=== PATIENT | male | born 1995 | race Caucasian/White ===

== ENCOUNTER 2020-12-30 08:50 | Emergency (ER) | payer OTHER ==
[~2020-12-30 08:50] MED LIST: ZOFRAN ODT 4 MG4 MG SL
[2020-12-30] MEDS ORDERED: NAPROXEN500 MG PO (10:36)
== END 2020-12-30 11:02 | disposition home or self-care (01) ==
LOC: ER1 08:50
DX: S63.501A Unspecified sprain of right wrist, initial encounter (principal); F17.210 Nicotine dependence, cigarettes, uncomplicated; W19.XXXA Unspecified fall, initial encounter; Y92.009 Unspecified place in unspecified non-institutional (private) residence as the place of occurrence of the external cause
CPT/HCPCS: 29125; 73090; 73130; 99283

== ENCOUNTER → 2021-01-03 | Outpatient (CLI) | payer OTHER ==
[~2021-01-03] MED LIST changes: +NAPROXEN500 MG PO
== END ==
LOC: KOH-I 12:21
DX: S62.101A Fracture of unspecified carpal bone, right wrist, initial encounter for closed fracture (principal); S63.014A Dislocation of distal radioulnar joint of right wrist, initial encounter; W19.XXXA Unspecified fall, initial encounter; S63.591A Other specified sprain of right wrist, initial encounter; R60.0 Localized edema
CPT/HCPCS: 73221